=== PATIENT | female | born 1965 | race Caucasian/White ===

== ENCOUNTER → 2016-11-15 | Outpatient (CLI) | payer BC ==
[~2016-11-15] MED LIST: ALEGRA PO; BACL10TA PO; CHOL2000 PO; DIVA500T PO; DOCU100T7 PO; ERGO400C PO; FEXO180T PO; FLEX SEED OIL PO; HCT25T PO; HYDR1TAB PO; IBP600T1 PO; LVT.05T PO; MULT-68 PO; NADO20TA PO; NADO20TA10 PO; OXYC-12 PO; PNT40TEC PO
== END ==
LOC: CARD 10:28
PROVIDERS: ATTEND Nurse Practitioner Family
DX: R00.2 Palpitations (principal); I10 Essential (primary) hypertension; R42 Dizziness and giddiness
CPT/HCPCS: 93225; 93226

== ENCOUNTER → 2016-12-04 | Outpatient (CLI) | payer BC ==
[~2016-12-04] MED LIST changes: +CATHETER FLUSH 10 ML SYR IV PRN
[2016-12-04 13:12] VITALS: BP 153/99
[2016-12-04 13:19] VITALS: BP 167/83
[2016-12-04 13:31] VITALS: BP 154/108
[2016-12-04 13:34] VITALS: BP 150/98
--- NOTE | 2016-12-06 14:11 | STRESS TEST ---
DATE OF SERVICE: 12/04/2016 RESTING AND POST EXERCISE TECHNETIUM-99M TETROFOSMIN SPECT CT IMAGING. ORDERING PHYSICIAN: Anika Back APRN PRIMARY PHYSICIAN: Dr. Marino. OTHER PHYSICIAN: Dr. Villa. CLINICAL DIAGNOSIS: Frequent premature ventricular contractions, palpitations. Baseline images were carried out after injection of 10.42 mCi Technetium-99M Tetrofosmin. This was followed by exercise on a treadmill. Serafin protocol was employed. Heart rate and blood pressure responses to exercise were normal. There was significant baseline artifact at peak exercise and therefore, the ECG cannot be interpreted for ischemia. In the immediate post-exercise phase, there is no evidence of ischemia. After the patient had attained 85% of maximum predicted heart rate 30.6 mCi Technetium-99M Tetrofosmin were injected and the exercise was continued for another minute. The exercise was stopped on account of fatigue. The patient exercised for a total of 10 minutes and 20 seconds in the Serafin protocol. She attained 12.1 METS of workload and 111% of maximum predicted heart rate. No significant arrhythmia was seen during the study. Review of images at rest and following stress does not indicate any significant perfusion defects consistent with any significant myocardial ischemia or infarction. Gated images show normal global left ventricular systolic function with normal regional wall motion. Left ventricular ejection fraction is calculated to be 69%. Left ventricular end diastolic volume is 21 mL. TID is absent (0.88). CONCLUSIONS: 1. No evidence of any significant myocardial ischemia or infarction on this study. 2. Normal regional wall motion. 3. Normal global left ventricular systolic function with a calculated ejection fraction of 69%. 4. No significant arrhythmia during exercise. Job ID: [id number] DocumentID: [id number] Dictated Date: 12/06/2016 12:20:13 Curriculum Assistant Date: 12/06/2016 12:58:30 Dictated By: CYNDIE VILLA MD, MA, FACP, FACC,
== END ==
LOC: CARD 11:45
PROVIDERS: ATTEND Nurse Practitioner Family
DX: I49.3 Ventricular premature depolarization (principal)
CPT/HCPCS: 78452; 93017